=== PATIENT | female | born 1980 | race Two or more races ===

== ENCOUNTER → 2022-01-04 | Outpatient (CLI) | payer OTHER | END | disposition home or self-care (01) | LOC: MRI 07:43 | DX: M19.012 Primary osteoarthritis, left shoulder (principal); M67.814 Other specified disorders of tendon, left shoulder; M25.812 Other specified joint disorders, left shoulder | CPT/HCPCS: 73221 ==

== ENCOUNTER → 2023-04-17 | Outpatient (CLI) | payer OTHER | END | disposition home or self-care (01) | LOC: MRI 07:27 | DX: M25.512 Pain in left shoulder (principal); M50.322 Other cervical disc degeneration at C5-C6 level | CPT/HCPCS: 72050; 72141; 73030; 73221 ==